=== PATIENT | female | born 1955 | race Caucasian/White ===

== ENCOUNTER 2018-01-03 16:18 | Observation (INO) | payer OTHER ==
--- NOTE | 2018-01-03 16:25 | EDPHY ---
H & P HPI/ROS: HPI CHIEF COMPLAINT: Multiple complaints, rash pruritus, chest discomfort HISTORY OF PRESENT ILLNESS: Patient is a 62-year-old female she does have a history of psoriasis she states she is otherwise healthy she presents to the emergency room stating that for the past week she has had progression of a pruritus rash close left side of her abdomen back and legs. She thought it was unsure eyes is acting up. However it is more severe. She does state that itches. Additionally she reports to me that she has been stressed at work over the past few days. Noticed over the past 3 days she has not been able to take a deep breath in. She states she feels sometimes some chest discomfort and some back tightness. She she states that her brought feels tight around her chest. She states she cannot take a deep breath in. She denies cough, fever, pleuritic pain. She is unsure the rash and shortness of breath is related. She denies any calf swelling or leg edema or peripheral edema. Denies hemoptysis. Denies pleuritic pain. Denies recent illness breath Past Medical History: Psoriasis Past Surgical History: Denies recent surgery Social History: Lives locally denies drugs alcohol tobacco. Family History: Noncontributory ROS REVIEW OF SYSTEMS: A comprehensive 10 point review of systems is otherwise negative aside from elements mentioned in the history of present illness. Exam Constitutional appears well nontoxic no acute distress, triage nursing summary reviewed, vital signs reviewed, awake/alert. Eyes normal conjunctivae and sclera, EOMI, PERRLA. HENT normal inspection, atraumatic, moist mucus membranes, no epistaxis, neck supple/ no meningismus, no raccoon eyes. Respiratory clear to auscultation bilaterally, normal breath sounds, no respiratory distress, no wheezing. Cardiovascular rate normal, regular rhythm, no murmur, no edema, distal pulses normal. Gastrointestinal soft, non-tender, no rebound, no guarding, normal bowel sounds, no distension, no pulsatile mass. Genitourinary no CVA tenderness. Musculoskeletal no midline vertebral tenderness, full range of motion, no calf swelling, no tenderness of extremities, no meningismus, good pulses, neurovascularly intact. Skin there blotches erythematous raised lesions throughout her thighs and legs , additionally left flank left abdomen and back no scale to them. They do tyson. No particular purpura. Appears to be hives. Neurologic awake, alert and oriented x 3, AAOx3, moves all 4 extremities equally, motor intact, sensory intact, CN II-XII intact, normal cerebellar, normal vision, normal speech. Psychiatric normal mood/affect. Heme/Lymph/Immune no lymphadenopathy. Differential Diagnosis: Includes but is not limited to in a particular order allergic reaction, psoriasis, electrolyte disturbance, infection, cardiac chest pain Medical Decision Making:Plan for this patient IV establishment full air sampling and monitoring obtain EKG, basic blood work including troponin D-dimer, chest x-ray, treat empirically for possible reaction IV Solu-Medrol IV Pepcid IV Benadryl. IV fluids. Re-evaluate. Re-evaluation: 1858: Re-evaluation at this time the patient does feel slightly better with nitroglycerin. She has received full-dose aspirin here. Patient need to be admitted the hospital for further cardiac evaluation and rule out. The rash did not get any better with IV Pepcid Benadryl Solu-Medrol. I do not feel that the rash is clinically significant in this patient's clinical scenario. The rash may be a red garcia. Was more concerning is her chest tightness like a band across her chest around her brawl. With associated back pain and shortness of breath. Her EKG was no evidence of significant ishemia here in emergency room troponin negative. D-dimer negative. However given her age and clinical picture think it is reasonable to risk stratify her rule her out possibly stress test. She has agreed for hospital admission and transfer to [facility]. The patient transfer be set up here in the emergency room transfer [facility] admitted by the hospitalist service for further cardiac evaluation. 1909: This patient has been accepted by the hospitalist service Dr. Gonzales. Admission to PCU for observation cardiac evaluation and rule out. Patient agrees for transfer. EKG interpretation by me on record in [employer] system. Impression time of EKG 1641, sinus rhythm rate of 95, Q-waves noted to [address] elevation no significant ST depression. No significant T-wave abnormalities. EKG interpretation by me on record in [employer] system. Impression time of EKG repeat EKG 1916, sinus rhythm rate of 89, Q-waves noted to [address] elevation. Unchanged from previous EKG. Source: Patient Constitutional: Initial Vital Signs Temperature (C) 37.1 C 01/03/18 16:24 Heart Rate 116 H 01/03/18 16:24 Respiratory Rate 16 01/03/18 16:24 Blood Pressure 167/99 H 01/03/18 16:24 O2 Sat (%) 95 01/03/18 16:24 O2 Delivery Mode Nasal Cannula O2 (L/minute) 2 Allergies/Adverse Reactions: No Known Allergies Allergy (Unverified 01/03/18 16:54) Home Medications: Medication Instructions Recorded NK [No Known Home Meds] 01/03/18 Medical Decision Making - Data Points Laboratory Results: Laboratory Results 01/03/18 16:53 01/03/18 16:53 Medications Given: Enoxaparin Sodium (Lovenox) 40 mg SC DAILY JACQUIE Stop: 07/03/18 08:59 Last Admin: 01/04/18 10:43 Dose: 40 mg Discontinued Medications Aspirin (Aspirin) 325 mg PO EDNOW ONE Stop: 01/03/18 18:41 Last Admin: 01/03/18 18:51 Dose: 325 mg Diphenhydramine HCl (Benadryl Injection) 25 mg IVP EDNOW ONE Stop: 01/03/18 16:33 Last Admin: 01/03/18 17:00 Dose: 25 mg Famotidine (Pepcid) 20 mg IVP EDNOW ONE Stop: 01/03/18 16:33 Last Admin: 01/03/18 17:05 Dose: 20 mg Sodium Chloride (Ns) 1,000 mls @ 0 mls/hr IV EDNOW ONE; Wide Open PRN Reason: Protocol Stop: 01/03/18 16:33 Last Admin: 01/03/18 17:00 Dose: 1,000 mls Methylprednisolone Sodium Succinate (Solu-Medrol) 125 mg IVP EDNOW ONE Stop: 01/03/18 16:33 Last Admin: 01/03/18 17:10 Dose: 125 mg Nitroglycerin (Nitrostat) 0.4 mg SL EDNOW ONE Stop: 01/03/18 18:44 Last Admin: 01/03/18 18:49 Dose: 0.4 mg Departure - Departure Disposition: Acute Care Hospital Not [facility] Clinical Impression: Chest pain Qualifiers: Chest pain type: unspecified Qualified Code(s): R07.9 - Chest pain, unspecified Condition: Fair
[2018-01-03] MEDS ORDERED: methylPREDNISolone SOD SUCC 125 MG/2 ML VIAL IVP ONE (16:32)
[2018-01-03] MEDS ORDERED: NS 1,000 ML IV ONE (16:32)
[2018-01-03] MEDS ORDERED: FAMOTIDINE 20 MG/2 ML SDV IVP ONE (16:32)
--- NOTE | 2018-01-03 16:45 | CPEKG ---
Heart Rate: 95 RR Interval: 632 P-R Interval: 144 QRSD Interval: 102 QT Interval: 356 QTC Interval: 448 P [place]: 42 QRS [place]: 92 T Wave [place]: 6 EKG Severity - ABNORMAL ECG - EKG Impression: SINUS RHYTHM EKG Impression: RIGHT AXIS DEVIATION EKG Impression: PROBABLE INFERIOR INFARCT, AGE INDETERMINATE Electronically Signed By: Jose Gomez 03-Jan-2018 22:09:21
[2018-01-03 16:58] LABS: PLATELET COUNT 231 10^3/uL (150-400)
[2018-01-03 17:18] LABS: CREATINE KINASE 87 IU/L (0-156)
[2018-01-03] MEDS ORDERED: ASPIRIN 325 MG TAB PO ONE (18:40)
[2018-01-03] MEDS ORDERED: NITROGLYCERIN 0.4 MG BTL SL ONE (18:43)
[2018-01-03 18:51] LABS: INR 1.05 (0.83-1.16); PROTIME(PATIENT) 13.6 SEC (12.0-15.0)
--- NOTE | 2018-01-03 19:19 | CPEKG ---
Heart Rate: 89 RR Interval: 674 P-R Interval: 148 QRSD Interval: 102 QT Interval: 380 QTC Interval: 463 P [place]: 34 QRS [place]: 81 T Wave [place]: 17 EKG Severity - ABNORMAL ECG - EKG Impression: SINUS RHYTHM EKG Impression: PROBABLE INFERIOR INFARCT, AGE INDETERMINATE Electronically Signed By: Jose Gomez 03-Jan-2018 22:09:21
[2018-01-03 20:20] VITALS: RESP 16
[2018-01-03] MEDS ORDERED: ONDANSETRON DISINTEGRATING 4 MG TAB PO PRN (22:10)
[2018-01-03] MEDS ORDERED: ONDANSETRON 4 MG/2 ML VIAL IVP PRN (22:10)
[2018-01-03] MEDS ORDERED: ACETAMINOPHEN 325 MG TAB PO PRN (22:10)
--- NOTE | 2018-01-04 00:39 | PDGENHP ---
History and Physical - Chief Complaint Rash, chest tightness - History of Present Illness 62 yo F w/ hx of psoriasis presents with rash and chest pain. Patient reports she has noticed a rash involving her upper legs and abdomen over the last week or so. The rash is not pruritic. She does note it does not have the classic appearance of her usual, mild psoriasis that involves her extensor surfaces. Then, over the last 3 days, she began to notice a tightness in her chest. She describes this as 4/10 central tightness associated with shortness of breath. There is also a pleuritic component to the pain. She denies any symptoms consistent with recent illness. She is being admitted for cardiac risk stratification. History Information - Allergies/Home Medication List Allergies/Adverse Reactions: No Known Allergies Allergy (Unverified 01/03/18 16:54) Home Medications: NK [No Known Home Meds] 01/03/18 [Last Taken Unknown] I have personally reviewed and updated: family history, medical history - Past Medical History Additional medical history: Psoriasis - Surgical History Reports: no pertinent surgical hx - Family History Positive for: cancer, CAD - Social History Smoking Status: Never smoked Review of Systems Review of Systems: ROS: 10pt was reviewed & negative except for what was stated in HPI & below Physical Exam Physical Exam: Temp Pulse Resp BP Pulse Ox 36.5 C 77 16 130/78 H 92 01/03/18 23:10 01/03/18 23:10 01/03/18 23:10 01/03/18 23:10 01/03/18 23:10 O2 (L/minute) 2 Constitutional: no apparent distress, not in pain Eyes: PERRL, EOMI Ears, Nose, Mouth, Throat: moist mucous membranes, no oral mucosal ulcers Cardiovascular: regular rate and rhythym, systolic murmur Respiratory: no respiratory distress, clear to auscultation Gastrointestinal: normoactive bowel sounds, soft, non-tender abdomen Skin: warm, rash (Nummular, slightly raised, erythematous patches involving upper legs and abdomen) Musculoskeletal: full muscle strength, no muscle tenderness Neurologic: AAOx3, CN II-XII Intact Psychiatric: interacting appropriately, not anxious Lab Data & Imaging Review 01/03/18 16:53 01/03/18 16:53 WBC 5.41 10^3/uL (3.80-9.50) 01/03/18 16:53 RBC 4.70 10^6/uL (4.18-5.33) 01/03/18 16:53 Hgb 14.6 g/dL (12.6-16.3) 01/03/18 16:53 Hct 42.9 % (38.0-47.0) 01/03/18 16:53 MCV 91.3 fL (81.5-99.8) 01/03/18 16:53 MCH 31.1 pg (27.9-34.1) 01/03/18 16:53 MCHC 34.0 g/dL (32.4-36.7) 01/03/18 16:53 RDW 13.3 % (11.5-15.2) 01/03/18 16:53 Plt Count 231 10^3/uL (150-400) 01/03/18 16:53 MPV 10.7 fL (8.7-11.7) 01/03/18 16:53 Neut % (Auto) 57.7 % (39.3-74.2) 01/03/18 16:53 Lymph % (Auto) 28.8 % (15.0-45.0) 01/03/18 16:53 [place] % (Auto) 9.6 % (4.5-13.0) 01/03/18 16:53 Eos % (Auto) 2.6 % (0.6-7.6) 01/03/18 16:53 Baso % (Auto) 1.1 % (0.3-1.7) 01/03/18 16:53 Nucleat RBC Rel Count 0.0 % (0.0-0.2) 01/03/18 16:53 Absolute Neuts (auto) 3.12 10^3/uL (1.70-6.50) 01/03/18 16:53 Absolute Lymphs (auto) 1.56 10^3/uL (1.00-3.00) 01/03/18 16:53 Absolute Monos (auto) 0.52 10^3/uL (0.30-0.80) 01/03/18 16:53 Absolute Eos (auto) 0.14 10^3/uL (0.03-0.40) 01/03/18 16:53 Absolute Basos (auto) 0.06 10^3/uL (0.02-0.10) 01/03/18 16:53 Absolute Nucleated RBC 0.00 10^3/uL (0-0.01) 01/03/18 16:53 Immature Gran % 0.2 % (0.0-1.1) 01/03/18 16:53 Immature Gran # 0.01 10^3/uL (0.00-0.10) 01/03/18 16:53 PT 13.6 SEC (12.0-15.0) 01/03/18 16:53 INR 1.05 (0.83-1.16) 01/03/18 16:53 APTT 30.5 SEC (23.0-38.0) 01/03/18 16:53 D-Dimer < 0.27 ug/mLFEU (0.00-0.50) 01/03/18 16:53 Sodium 142 mEq/L (135-145) 01/03/18 16:53 Potassium 3.5 mEq/L (3.5-5.2) 01/03/18 16:53 Chloride 102 mEq/L (97-110) 01/03/18 16:53 Carbon Dioxide 23 mEq/l (22-31) 01/03/18 16:53 Anion Gap 17 mEq/L (8-16) H 01/03/18 16:53 BUN 13 mg/dL (7-23) 01/03/18 16:53 Creatinine 0.9 mg/dL (0.6-1.0) 01/03/18 16:53 Estimated GFR > 60 01/03/18 16:53 Glucose 104 mg/dL (70-100) H 01/03/18 16:53 Calcium 9.9 mg/dL (8.5-10.4) 01/03/18 16:53 Magnesium 2.0 mg/dL (1.6-2.3) 01/03/18 16:53 Total Bilirubin 0.7 mg/dL (0.1-1.4) 01/03/18 16:53 Conjugated Bilirubin 0.1 mg/dL (0.0-0.5) 01/03/18 16:53 Unconjugated Bilirubin 0.6 mg/dL (0.0-1.1) 01/03/18 16:53 AST 24 IU/L (14-46) 01/03/18 16:53 ALT 32 IU/L (9-52) 01/03/18 16:53 Alkaline Phosphatase 81 IU/L (38-126) 01/03/18 16:53 Creatine Kinase 87 IU/L (0-156) 01/03/18 16:53 CK-MB (CK-2) Fraction 0.94 ng/mL (0.00-4.55) 01/03/18 16:53 Troponin I < 0.012 ng/mL (0.000-0.034) 01/03/18 16:53 NT-Pro-B Natriuret Pep 72 pg/mL (0-125) 01/03/18 16:53 Total Protein 6.8 g/dL (6.3-8.2) 01/03/18 16:53 Albumin 4.2 g/dL (3.5-5.0) 01/03/18 16:53 Lipase 186 IU/L (23-300) 01/03/18 16:53 Influenza A,B Rapid NEGATIVE FOR FLU (NEGATIVE) 01/03/18 17:42 Imaging Review: Imaging Impressions Chest X-Ray 01/03/18 16:32 Impression: No acute findings in the chest. EKG Interpretation: Positive for: other (Incomplete RBBB, poor R wave progression) Assessment & Plan Assessment: 62 yo F w/ hx of psoriasis and CP presents w/ rash and chest pain. Plan: 1. Chest pain - Describes as chest tightness associated with SOB that comes and goes over the last 3 days. Atypical for angina in that there is a pleuritic component but patient admitted due to age, non-specific ECG abnormalities, and family hx of CAD. Troponin negative and ECG with non-specific intra-ventricular delay and poor R wave progression. D-dimer negative making PE highly unlikely. - Admit to PCU for observation - Monitor on telemetry, trend cardiac enzymes - Graded exercise stress test ordered for the morning 2. Rash - Atypical appearance for psoriasis, which patient has a history of. Rash has an allergic appearance, perhaps nummular eczema. She is asymptomatic from this. - Outpatient follow up 3. Hx psoriasis - She states this is mild and rarely causes problems. Diet - Regular, NPO @ [place] pending cardiac risk stratification Code - Full Ppx - LMWH Dispo - Admit to PCU under observation status
[2018-01-04 04:34] LABS: PLATELET COUNT 206 10^3/uL (150-400)
[2018-01-04] MEDS ORDERED: ENOXAPARIN 40 MG/0.4 ML SYR SC SCH (09:00)
--- NOTE | 2018-01-04 09:30 | ASMTCASEMG ---
Living Arrangements What is your living Answers: With Spouse arrangement? Who do you live with? Type Of Residence What kind of residence do Answers: House you live in? Discharge Plan Comments Coordination Status Comments Notes: Pt is a 62 y/o female admitted for chest pain and a rash. A stress test has been ordered. Pt will most likely d/c independent if stress test comes back negative. No therapies at this time. CM available for changes. Plan: Independent Date Signed: 01/04/2018 09:29 AM Electronically Signed By:CHELSEA Gutierrez
--- NOTE | 2018-01-04 12:41 | CPR ---
[f rep st] NONINVASIVE CARDIAC PROCEDURE REPORT DATE OF PROCEDURE: 01/03/2018 PROCEDURE: Exercise treadmill test. INDICATION: The patient is a 62-year-old female who presented to the hospital complaining of intermi ttent chest discomfort and shortness of breath. Her symptoms persisted for hours and were not associ ated with physical activity. She denied any history of hypertension, hyperlipidemia, diabetes, ongoi ng tobacco use or family history of premature coronary artery disease. PROCEDURE IN DETAIL: Consent was obtained. The patient was placed on continuous telemetry. Her res ting EKG revealed normal sinus rhythm with micro Q-waves in the inferior leads. The patient walked o n the treadmill for 6 minutes without any associated symptoms. She reached 100% of her age-predicted maximum heart rate with her heart rate peaking at 160 beats per minute. There were no ST-T wave coleman nges to suggest ischemia. Her blood pressure at rest was 120/80 and increased appropriately, peaking at 158/80. Her blood pressure returned to her baseline 4 minutes into recovery. PLAN: Low risk exercise treadmill test. /[id number]/MODL
[2018-01-04 13:21] VITALS: BP 131/84; PULSE 66; TEMP 98; O2SAT 90
--- NOTE | 2018-01-04 19:37 | GDS ---
[f rep st] DISCHARGE SUMMARY DISCHARGE DIAGNOSES: 1. Chest pain. 2. Rash. 3. History of psoriasis. HISTORY OF PRESENT ILLNESS: A 62-year-old female with history of psoriasis, presenting with rash and chest pain. She notes the rash involving her upper legs and abdomen over the last week, but is not pruritic. She says it is not the classic appearance of her usual mild psoriasis that involves her ex tensor surfaces. Over the last 3 days she has noticed tightness in her chest, 4/10, that is associat ed with shortness of breath. There is no radiation to the arm, neck, or back. She denies any fevers , chills, or sweats. HOSPITAL COURSE BY PROBLEM: 1. Chest pain: She does have a history of coronary artery disease thus underwent exercise treadmill , which was negative. D-dimer negative. 2. Rash: Atypical for psoriasis. She is asymptomatic for this. She can follow up with her outpati ent physician. 3. Psoriasis: Follow up with her PCP. PHYSICAL EXAMINATION: VITAL SIGNS: Today, temperature 36.7, blood pressure 131/84, heart rate 60s t o 80s, respirations 16, 90% on room air. GENERAL: Well appearing, sitting in bed, no acute distress . HEENT: PERRLA. EOMI. Oropharynx clear. CV: Regular rate and rhythm. No murmurs, gallops, or rubs. LUNGS: Clear. No wheezing. No crackles. GI: Soft, nontender, nondistended. Positive josh l sounds. : No Lujan. SKIN: Warm with slightly raised red patches of upper legs. MUSCULOSKELET AL: 5/5 upper and lower extremity strength. NEURO: 2 through 12 intact. PSYCH: Alert and oriented x3. DISPOSITION: Patient is stable for discharge. MEDICATIONS: No new medications. /[id number]/MODL
== END 2018-01-04 15:00 | disposition home or self-care (01) ==
LOC: CED 16:18 → F2W 20:49
PROVIDERS: ADMIT Family Medicine; ATTEND Internal Medicine
DX: R07.9 Chest pain, unspecified (principal); R21 Rash and other nonspecific skin eruption; L40.9 Psoriasis, unspecified; I25.10 Atherosclerotic heart disease of native coronary artery without angina pectoris; I45.19 Other right bundle-branch block
CPT/HCPCS: 71045; 93005; 93017; G0378; 80048-PO; 80076-PO; 82550-PO; 82553-PO; 83690-PO; 83735-PO; 83880-PO; 84484-PO; 85025-PO; 85378-PO; 85610-PO; 85730-PO; 87400-PO; 96374; J1200; J1650; J2930